=== PATIENT | female | born 1990 | race African-American/Black ===

== ENCOUNTER 2016-06-30 16:35 | Inpatient (IN) | payer MEDICAID ==
[~2016-06-30] VITALS: Ht 162.6 cm; Wt 100.7 kg
[2016-06-30 17:30] LABS: MEAN CORPUSCULAR HEMOGLOBIN 15.3 pg (28.0-32.0); MEAN CORPUSCULAR HGB CONC 28.8 g/dL (31.0-37.0); MEAN CORPUSCULAR VOLUME 53.2 fL (81.0-99.0); MEAN PLATELET VOLUME 9.1 fl (7.4-10.4); PLATELET 312 x1000/uL (130-400); RED BLOOD CELL COUNT 3.44 mill/uL (4.2-5.4); WHITE BLOOD COUNT 8.6 x1000/uL (4.5-11.0)
[2016-06-30 17:33] LABS: DIFFERENTIAL COMMENT 1; HEMATOCRIT. 18.3 % (36.0-48.0); HEMOGLOBIN. 5.3 g/dL (12.0-16.0); INR 1.1; PROTHROMBIN TIME 11.2 sec
[2016-06-30 17:37] LABS: ALBUMIN 3.5 g/dL (3.4-5.0); ANION GAP 11; CALCIUM 8.6 mg/dL (8.5-10.1); CARBON DIOXIDE 26 mEq/L (21-32); CHLORIDE 107 mEq/L (98-107); INDEX HEMOLYSI 1 (1-3); INDEX ICTERIC 1 (1-4); INDEX LIPEMIC 1 (1-3); UREA NITROGEN BLOOD 12 mg/dL (7-21)
[2016-06-30 17:39] LABS: ALANINE AMINOTRANSFERASE 14 IU/L (13-61); eGFR > 60 mL/min (>60)
[2016-06-30 17:53] LABS: HYPOCHROMASIA 3+; OVALOCYTES 1+; PLATELET ESTIMATE NORMAL
[2016-06-30] MEDS ORDERED: SODIUM CHLORIDE 0.9% 1,000 ML IV SCH (19:33)
[2016-06-30] MEDS ORDERED: CLONIDINE 0.1MG TABLET PO PRN (19:45)
[2016-06-30] MEDS ORDERED: DIPHENHYDRAMINE 50MG/ML VIAL IV PRN (19:45)
[2016-06-30] MEDS ORDERED: ONDANSETRON HCL 4MG/2ML VIAL IV PRN (19:45)
[2016-06-30] MEDS ORDERED: ACETAMINOPHEN 325MG TABLET PO PRN (19:45)
[2016-06-30] MEDS ORDERED: MAGNESIUM/ALUMINUM HYDROXIDE/SIMETHICONE 30ML UDC PO PRN (19:45)
[2016-06-30 19:58] LABS: INDEX HEMOLYSI 1 (1-3); INDEX ICTERIC 1 (1-4); INDEX LIPEMIC 1 (1-3); IRON 17 ug/dL (50-175); TOTAL IRON BINDING CAPACITY 405 ug/dL (250-450)
[2016-06-30] MEDS ORDERED: MEDR10TA11 PO (19:59)
[2016-06-30] MEDS ORDERED: POTASSIUM CHLORIDE 20MEQ TABLET SR PO NR (20:30)
[2016-06-30] MEDS ORDERED: MAGNESIUM 2 G PREMIX 50 ML IV ONE (20:30)
[2016-06-30 20:40] LABS: MAGNESIUM 2.1 mg/dL (1.8-2.4)
[2016-07-01] VITALS (13 sets, daily range): BP systolic 111–137; BP diastolic 69–93
[2016-07-01] MEDS ORDERED: POTASSIUM CHLORIDE 20MEQ TABLET SR PO NR (03:15)
[2016-07-01 06:48] LABS: HEMATOCRIT 24.9 % (36.0-48.0); HEMOGLOBIN 7.6 g/dL (12.0-16.0); MEAN CORPUSCULAR HEMOGLOBIN 18.4 pg (28.0-32.0); MEAN CORPUSCULAR HGB CONC 30.4 g/dL (31.0-37.0); MEAN CORPUSCULAR VOLUME 60.3 fL (81.0-99.0); PLATELET 283 x1000/uL (130-400); RED BLOOD CELL COUNT 4.13 mill/uL (4.2-5.4); RED CELL DISTRIBUTION WIDTH 32.9 % (11.6-14.6); WHITE BLOOD COUNT 8.7 x1000/uL (4.5-11.0)
[2016-07-01] MEDS: FERROUS SULFATE 325MG TABLET PO SCH ×2 (08:01→12:52)
[2016-07-01 11:24] LABS: HEMATOCRIT 27.5 % (36.0-48.0); HEMOGLOBIN 8.6 g/dL (12.0-16.0); MEAN CORPUSCULAR HGB CONC 31.3 g/dL (31.0-37.0); MEAN CORPUSCULAR VOLUME 60.8 fL (81.0-99.0); PLATELET 275 x1000/uL (130-400); RED BLOOD CELL COUNT 4.53 mill/uL (4.2-5.4); RED CELL DISTRIBUTION WIDTH 31.6 % (11.6-14.6); WHITE BLOOD COUNT 7.7 x1000/uL (4.5-11.0)
[2016-07-01] MEDS ORDERED: IRON SUCROSE COMPLEX 100 MG/5 ML ML IV SCH (14:00)
== END 2016-07-01 16:30 | disposition home or self-care (01) | DRG 663 ==
LOC: ER 19:08 → 6EST 19:38
PROVIDERS: ADMIT Internal Medicine; ATTEND Internal Medicine
PROC: 30233N1 Transfusion of Nonautologous Red Blood Cells into Peripheral Vein, Percutaneous Approach (ICD-10-PCS; principal; 2016-06-30)
DX: D64.9 Anemia, unspecified (principal); E61.1 Iron deficiency; N92.0 Excessive and frequent menstruation with regular cycle; Z82.49 Family history of ischemic heart disease and other diseases of the circulatory system; Z83.3 Family history of diabetes mellitus
CPT/HCPCS: 36415; 80053; 83540; 83550; 83735; 85025; 85027; 85610; 86850; 86900; 86920; 99285; P9016

== ENCOUNTER 2017-02-02 18:09 | Emergency (ER) | payer MEDICAID ==
[~2017-02-02] VITALS: Ht 162.6 cm; Wt 101.0 kg
[~2017-02-02 18:09] MED LIST: MEDR10TA11 PO
[2017-02-02 18:21] VITALS: BP 197/124
== END 2017-02-02 22:50 | disposition left against medical advice (07) ==
LOC: ER 18:20
DX: N93.9 Abnormal uterine and vaginal bleeding, unspecified (principal); Z53.21 Procedure and treatment not carried out due to patient leaving prior to being seen by health care provider

== ENCOUNTER 2019-12-27 13:17 | Emergency (ER) | payer MEDICAID ==
[~2019-12-27] VITALS: Ht 165.1 cm; Wt 109.0 kg
[2019-12-27 14:20] VITALS: BP 154/99
[2019-12-27] MEDS ORDERED: ACETAMINOPHEN 325MG TABLET PO STA (14:46)
[2019-12-27] MEDS ORDERED: SODIUM CHLORIDE 0.9% 1,000 ML IV ONE (15:00)
[2019-12-27 15:09] LABS: BASOPHILS % 0.6 % (0.0-2.0); EOSINOPHILS % 1.8 % (0.0-5.0); HEMATOCRIT. 28.1 % (36.0-48.0); HEMOGLOBIN. 8.9 g/dL (12.0-16.0); LYMPHOCYTES % 20.2 % (20.0-50.0); MEAN CORPUSCULAR VOLUME 66.2 fL (81.0-99.0); MEAN PLATELET VOLUME 9.1 fl (7.4-10.4); MONOCYTES % 6.2 % (2.0-8.0); NEUTROPHILS % 71.2 % (40.0-76.0); PLATELET 330 x1000/uL (130-400); RED BLOOD CELL COUNT 4.25 mill/uL (4.2-5.4); RED CELL DISTRIBUTION WIDTH 23.1 % (11.6-14.6)
[2019-12-27 15:12] LABS: CLARITY URINE CLOUDY (CLEAR); COLOR URINE ORANGE (YELLOW); KETONES URINE NEGATIVE (NEGATIVE); LEUKOCYTE ESTERASE URINE 1+ (NEGATIVE); NITRITE URINE NEGATIVE (NEGATIVE); OCCULT BLOOD URINE 3+ (NEGATIVE); PROTEIN URINE 1+ (NEGATIVE)
[2019-12-27 15:12] LABS: CHLORIDE 108 mEq/L (98-107)
[2019-12-27 15:23] LABS: B-HCG QUANTITATIVE < 1 mIU/mL (<3)
[2019-12-27 15:24] LABS: INR 1.1; PARTIAL THROMBOPLASTIN TIME 29.4 sec (23.4-31.0); PROTHROMBIN TIME 11.3 sec (9.6-11.0)
[2019-12-27 16:04] LABS: PLATELET ESTIMATE NORMAL
[2019-12-27 16:07] LABS: HCG SCREEN NEGATIVE
[2019-12-27] MEDS ORDERED: POTASSIUM CHLORIDE 20MEQ TABLET SR PO ONE (16:45)
== END 2019-12-27 18:00 | disposition home or self-care (01) ==
LOC: ER 13:17
DX: N93.8 Other specified abnormal uterine and vaginal bleeding (principal); I10 Essential (primary) hypertension
CPT/HCPCS: 36415; 76830; 76856; 80053; 81003; 84484; 84702; 84703; 85025; 93005; 99285